=== PATIENT | male | born 1960 | race Caucasian/White ===

== ENCOUNTER → 2017-03-25 | Outpatient (CLI) | payer OTHER, MEDICARE ==
[~2017-03-25] MED LIST: ALPRazolam 1MG TABLET ONE
== END | disposition home or self-care (01) ==
LOC: RAD 07:08
PROVIDERS: ATTEND Physical Medicine & Rehabilitation
DX: M47.895 Other spondylosis, thoracolumbar region (principal); M47.896 Other spondylosis, lumbar region; M96.1 Postlaminectomy syndrome, not elsewhere classified; G89.29 Other chronic pain; Z98.1 Arthrodesis status; Z98.890 Other specified postprocedural states
CPT/HCPCS: 72148

== ENCOUNTER 2019-10-02 22:59 | Inpatient (IN) | payer OTHER, MEDICARE ==
[~2019-10-02] VITALS: Ht 185.4 cm; Wt 119.4 kg
[2019-10-02] MEDS ORDERED: MORPHINE SULFATE 4 MG/ML, 1ML IVPush PRN (23:30)
[2019-10-02] MEDS ORDERED: SODIUM CHLORIDE FLUSH 10ML SYR IVF ONE (23:30)
[2019-10-02] MEDS ORDERED: MORPHINE SULFATE 4 MG/ML, 1ML ONE (23:31)
--- NOTE | 2019-10-02 23:59 | NUR ---
pt biba from home for glf. states he slipped on bathroom rug. pt has chronic pain. sees pain mgmt. pt has 3 dime sized bruises noted to R flank. denies loc. pt has iv in place, estb by darryl. pt was tachy ~150 at home. syd to ed hr ~115. ns infusing slowly. pa at bs. pt remain in xray at this time.
--- NOTE | 2019-10-03 00:11 | NUR ---
pt back from xray. labs drawn & sent. call light inreach. will ctm.
[2019-10-03 00:23] LABS: BASOPHILS # (AUTO) 0.03 x10^3/uL (0-0.1); BASOPHILS % (AUTO) 0 % (0-1); EOSINOPHILS # (AUTO) 0.05 x10^3/uL (0-0.4); EOSINOPHILS % (AUTO) 1 % (1-7); LYMPHOCYTES # (AUTO) 1.62 x10^3/uL (1-3.4); LYMPHOCYTES % (AUTO) 18 % (22-44); MD NO; MEAN CORPUSCULAR HEMOGLOBIN 33.6 pg (27.5-34.5); MEAN CORPUSCULAR HGB CONC 34.2 g/dL (33.2-36.2); MEAN CORPUSCULAR VOLUME 98.4 fL (81-97); MEAN PLATELET VOLUME 7.1 fL (7.4-10.4); MONOCYTES # (AUTO) 0.71 x10^3/uL (0.2-0.8); MONOCYTES % (AUTO) 8 % (2-9); NEUTROPHILS # (AUTO) 6.68 x10^3/uL (1.8-6.8); NEUTROPHILS % (AUTO) 74 % (42-75); PLATELET COUNT 105 x10^3/uL (130-400); RED BLOOD COUNT 2.67 x10^6/uL (4.38-5.82); RED CELL DISTRIBUTION WIDTH 16.4 % (9.4-14.8)
[2019-10-03 00:33] LABS: ALANINE AMINOTRANSFERASE 20 U/L (12-78); ALBUMIN 1.3 g/dL (3.4-5.0); ANION GAP 9 mmol/L (5-15); CHLORIDE 120 mmol/L (98-107); CREATININE 0.57 mg/dL (0.7-1.3)
[2019-10-03 00:35] LABS: ALKALINE PHOSPHATASE 97 U/L (45-117); BILIRUBIN,TOTAL 0.2 mg/dL (0.2-1.0); TOTAL PROTEIN 4.2 g/dL (6.4-8.2)
[2019-10-03 00:38] LABS: CALCIUM < 5.0 mg/dL (8.5-10.1)
--- NOTE | 2019-10-03 00:38 | NUR ---
LAB CALLS WITH CRITICAL CA LESS THAN 5, MD AWARE
[2019-10-03] MEDS ORDERED: CALCIUM GLUCONATE 4.6 MEQ/10 ML IVPush ONE (01:00)
[2019-10-03] MEDS ORDERED: SODIUM CHLORIDE 0.9% 1,000ML IVBOLUS ONE (01:00)
[2019-10-03] MEDS: PLEASE ENTER ALLERGIES MC SCH ×2 (01:00→02:46)
[2019-10-03] MEDS ORDERED: CALCIUM GLUCONATE 4.6 MEQ in SODIUM CHLORIDE 0.9% 100 ML IV ONE (01:30)
[2019-10-03 01:53] LABS: MICROSCOPIC NOT IND
[2019-10-03 02:01] LABS: CULTURE INDICATED? NO
[2019-10-03] MEDS ORDERED: MORPHINE SULFATE 4 MG/ML, 1ML ONE (02:09)
[2019-10-03] MEDS ORDERED: MORPHINE SULFATE 4 MG/ML, 1ML IVPush ONE (02:30)
[2019-10-03] MEDS ORDERED: LISI2.5T PO (02:33)
[2019-10-03] MEDS ORDERED: CIME300T PO (02:34)
[2019-10-03] MEDS ORDERED: HYDR-2995 PO (02:34)
[2019-10-03] MEDS ORDERED: OXYC5CAP2 PO (02:35)
[2019-10-03] MEDS ORDERED: TRAZ-175 PO (02:35)
[2019-10-03 03:21] VITALS: BP 144/72
[2019-10-03] MEDS: POTASSIUM CHLORIDE 20 MEQ, MAGNESIUM SULFATE 2 GM, THIAMINE 200 MG, MVI ADULT 10 ML, FO... IV SCH (03:35)
[2019-10-03] MEDS ORDERED: ACETAMINOPHEN 325 MG TABLET PO PRN (04:00)
[2019-10-03] MEDS ORDERED: hydrALAzine 20 MG/ML, 1ML IVPush PRN (04:00)
[2019-10-03] MEDS ORDERED: PROMETHAZINE 25 MG/ML, 1ML IM PRN (04:00)
[2019-10-03] MEDS ORDERED: OMNIPAQUE 350 MG/ML, 100ML BOTTLE ONE (05:29)
[2019-10-03] MEDS ORDERED: POTASSIUM PHOSPHATE 22 MEQ in SODIUM CHLORIDE 0.9% 500 ML IV ONE (05:30)
[2019-10-03] MEDS: morphine SULFATE 10 MG/ML, 1ML IVPush PRN ×2 (06:50→11:45)
[2019-10-03 07:20] VITALS: BP 128/78
[2019-10-03 08:15] LABS: AMPHETAMINE SCREEN, URINE Negative (Negative); BARBITURATE SCREEN, URINE Negative (Negative); BENZODIAZEPINE SCREEN, URINE Negative (Negative); CANNABINOID SCREEN, URINE Positive (Negative); COCAINE SCREEN, URINE Negative (Negative); METHADONE SCREEN, URINE Negative (Negative); OPIATE SCREEN, URINE Positive (Negative)
[2019-10-03] MEDS ORDERED: MAGNESIUM SULFATE PMX 2GM/50ML 50 ML IV ONE (08:30)
[2019-10-03 10:02] LABS: ANION GAP 12 mmol/L (5-15); CALCIUM 9.2 mg/dL (8.5-10.1); CHLORIDE 106 mmol/L (98-107); CREATININE 1.23 mg/dL (0.7-1.3)
[2019-10-03 12:14] VITALS: BP 153/75
[2019-10-03] MEDS: LACTATED RINGERS 1,000 ML IV SCH (13:30)
[2019-10-03] MEDS: LORazepam 2 MG/ML, 1ML IV PRN ×2 (14:26→20:53)
[2019-10-03] MEDS ORDERED: LORazepam 2 MG/ML, 1ML IV PRN ×2 (14:30)
[2019-10-03 19:35] VITALS: BP 156/85
[2019-10-03 23:58] VITALS: BP 173/80
[2019-10-04] MEDS: morphine SULFATE 10 MG/ML, 1ML IVPush PRN (00:04)
[2019-10-04 01:06] VITALS: BP 152/81
[2019-10-04] MEDS: LACTATED RINGERS 1,000 ML IV SCH (01:57)
[2019-10-04] MEDS: LORazepam 2 MG/ML, 1ML IV PRN (03:54)
[2019-10-04 06:12] LABS: MEAN CORPUSCULAR HEMOGLOBIN 34.5 pg (27.5-34.5); MEAN CORPUSCULAR HGB CONC 34.4 g/dL (33.2-36.2); MEAN CORPUSCULAR VOLUME 100.4 fL (81-97); MEAN PLATELET VOLUME 7.1 fL (7.4-10.4); PLATELET COUNT 93 x10^3/uL (130-400); RED BLOOD COUNT 3.74 x10^6/uL (4.38-5.82); RED CELL DISTRIBUTION WIDTH 16.3 % (9.4-14.8)
[2019-10-04 06:21] LABS: CHLORIDE 108 mmol/L (98-107)
[2019-10-04 06:29] LABS: ALANINE AMINOTRANSFERASE 35 U/L (12-78); ALBUMIN 2.5 g/dL (3.4-5.0); ALKALINE PHOSPHATASE 175 U/L (45-117); ANION GAP 5 mmol/L (5-15); BILIRUBIN,TOTAL 1.9 mg/dL (0.2-1.0); CALCIUM 8.6 mg/dL (8.5-10.1); CREATININE 0.82 mg/dL (0.7-1.3); TOTAL PROTEIN 7.1 g/dL (6.4-8.2)
[2019-10-04 06:38] LABS: BASOPHILS # (AUTO) 0.03 x10^3/uL (0-0.1); BASOPHILS % (AUTO) 0 % (0-1); EOSINOPHILS # (AUTO) 0.08 x10^3/uL (0-0.4); EOSINOPHILS % (AUTO) 1 % (1-7); LYMPHOCYTES # (AUTO) 1.77 x10^3/uL (1-3.4); LYMPHOCYTES % (AUTO) 22 % (22-44); MD SCAN; MONOCYTES # (AUTO) 1.15 x10^3/uL (0.2-0.8); MONOCYTES % (AUTO) 14 % (2-9); NEUTROPHILS # (AUTO) 5.17 x10^3/uL (1.8-6.8); NEUTROPHILS % (AUTO) 63 % (42-75)
[2019-10-04 06:46] VITALS: BP 162/76
[2019-10-04] MEDS ORDERED: SODIUM PHOSPHATE 20 MMOL in SODIUM CHLORIDE 0.9% 500 ML IV ONE (08:00)
[2019-10-04] MEDS ORDERED: LORazepam 1MG TABLET PO PRN (10:00)
[2019-10-04] MEDS ORDERED: LORazepam 0.5MG TABLET PO PRN (10:00)
[2019-10-04] MEDS ORDERED: LISI-167 PO (11:14)
[2019-10-04] MEDS: LISINOPRIL 10 MG TABLET PO SCH (11:49)
[2019-10-04] MEDS: LORazepam 1MG TABLET PO PRN ×3 (11:49→19:40)
[2019-10-04 12:17] VITALS: BP 163/82
[2019-10-04] MEDS: POTASSIUM CHLORIDE 20 MEQ, MAGNESIUM SULFATE 2 GM, THIAMINE 200 MG, MVI ADULT 10 ML, FO... IV SCH (15:53)
[2019-10-04] MEDS: HYDROcodone/APAP 5/325 TABLET PO PRN ×2 (16:55→20:57)
[2019-10-04 19:31] VITALS: BP 157/76
[2019-10-05 00:52] VITALS: BP 150/78
[2019-10-05] MEDS: LACTATED RINGERS 1,000 ML IV SCH ×3 (03:00→19:57)
[2019-10-05] MEDS: HYDROcodone/APAP 5/325 TABLET PO PRN ×3 (04:08→15:53)
[2019-10-05 05:59] LABS: ALANINE AMINOTRANSFERASE 35 U/L (12-78); ALBUMIN 2.6 g/dL (3.4-5.0); ANION GAP 6 mmol/L (5-15); CALCIUM 8.6 mg/dL (8.5-10.1); CHLORIDE 107 mmol/L (98-107); CREATININE 0.77 mg/dL (0.7-1.3); MEAN CORPUSCULAR HEMOGLOBIN 33.7 pg (27.5-34.5); MEAN CORPUSCULAR HGB CONC 33.9 g/dL (33.2-36.2); MEAN CORPUSCULAR VOLUME 99.4 fL (81-97); MEAN PLATELET VOLUME 7.5 fL (7.4-10.4); PLATELET COUNT 84 x10^3/uL (130-400); RED BLOOD COUNT 3.69 x10^6/uL (4.38-5.82)
[2019-10-05 06:01] LABS: ALKALINE PHOSPHATASE 167 U/L (45-117); BILIRUBIN,TOTAL 2.6 mg/dL (0.2-1.0); TOTAL PROTEIN 7.3 g/dL (6.4-8.2)
[2019-10-05 06:21] LABS: BASOPHILS # (AUTO) 0.03 x10^3/uL (0-0.1); BASOPHILS % (AUTO) 0 % (0-1); EOSINOPHILS # (AUTO) 0.09 x10^3/uL (0-0.4); EOSINOPHILS % (AUTO) 1 % (1-7); LYMPHOCYTES # (AUTO) 2.01 x10^3/uL (1-3.4); LYMPHOCYTES % (AUTO) 28 % (22-44); MD SCAN; MONOCYTES # (AUTO) 0.74 x10^3/uL (0.2-0.8); MONOCYTES % (AUTO) 10 % (2-9); NEUTROPHILS # (AUTO) 4.44 x10^3/uL (1.8-6.8); NEUTROPHILS % (AUTO) 61 % (42-75)
[2019-10-05] MEDS: LORazepam 1MG TABLET PO PRN ×3 (06:42→23:56)
[2019-10-05 06:55] VITALS: BP 137/67
[2019-10-05] MEDS: LISINOPRIL 10 MG TABLET PO SCH (08:22)
[2019-10-05 12:25] VITALS: BP 145/78
[2019-10-05] MEDS: POTASSIUM CHLORIDE 20 MEQ, MAGNESIUM SULFATE 2 GM, THIAMINE 200 MG, MVI ADULT 10 ML, FO... IV SCH (15:53)
[2019-10-05 19:48] VITALS: BP 151/83
[2019-10-06 00:20] VITALS: BP 152/53
[2019-10-06] MEDS: HYDROcodone/APAP 5/325 TABLET PO PRN ×2 (00:56→07:27)
[2019-10-06 04:25] VITALS: BP 163/83
[2019-10-06] MEDS: LORazepam 1MG TABLET PO PRN ×2 (04:29→08:20)
[2019-10-06] MEDS: LACTATED RINGERS 1,000 ML IV SCH ×2 (06:13→13:10)
[2019-10-06 07:42] VITALS: BP 158/84
[2019-10-06] MEDS: LISINOPRIL 10 MG TABLET PO SCH (08:20)
[2019-10-06 13:17] VITALS: BP 165/93
[2019-10-06] MEDS: POTASSIUM CHLORIDE 20 MEQ, MAGNESIUM SULFATE 2 GM, THIAMINE 200 MG, MVI ADULT 10 ML, FO... IV SCH (15:00)
[2019-10-06] MEDS ORDERED: CHLO25CA9 PO (16:02)
== END 2019-10-06 17:55 | disposition home or self-care (01) | DRG 438 ==
LOC: ED 10-03 01:50 → EDIP 10-03 01:58 → ED 10-03 02:18 → 4EST 10-03 03:27
PROVIDERS: ADMIT Family Medicine; ATTEND Family Medicine
DX: K85.20 Alcohol induced acute pancreatitis without necrosis or infection (principal); E43 Unspecified severe protein-calorie malnutrition; E87.1 Hypo-osmolality and hyponatremia; F10.239 Alcohol dependence with withdrawal, unspecified; F10.288 Alcohol dependence with other alcohol-induced disorder; F11.20 Opioid dependence, uncomplicated; D53.9 Nutritional anemia, unspecified; D69.6 Thrombocytopenia, unspecified; E83.39 Other disorders of phosphorus metabolism; E83.42 Hypomagnesemia; E83.51 Hypocalcemia; E87.6 Hypokalemia; F12.10 Cannabis abuse, uncomplicated; G89.4 Chronic pain syndrome; I10 Essential (primary) hypertension; Z96.641 Presence of right artificial hip joint; Y92.009 Unspecified place in unspecified non-institutional (private) residence as the place of occurrence of the external cause; Z68.34 Body mass index [BMI] 34.0-34.9, adult
CPT/HCPCS: 36415; 71101; 72072; 72110; 96365; 96375; 99291; J7042; 71045; 74177; 80048; 80053; 80307; 81003; 82330; 83690; 83735; 84100; 85014; 85018; 85025; 93005; G0378; J0610; J3411; J3475; J3480; Q9967; J2060; J2270; J7030; J7040; J7120

== ENCOUNTER → 2020-11-24 | Outpatient (CLI) | payer OTHER, MEDICARE ==
[~2020-11-24] MED LIST changes: -ALPRazolam 1MG TABLET ONE; +CHLO25CA9 PO; +CIME300T PO; +HYDR-2995 PO; +LISI-167 PO; +LISI2.5T PO; +OXYC5CAP2 PO; +TRAZ-175 PO
== END | disposition home or self-care (01) ==
LOC: CVU 07:58
PROVIDERS: ATTEND Internal Medicine
DX: I35.8 Other nonrheumatic aortic valve disorders (principal); R16.1 Splenomegaly, not elsewhere classified; R18.8 Other ascites; R00.0 Tachycardia, unspecified; D69.6 Thrombocytopenia, unspecified; K76.0 Fatty (change of) liver, not elsewhere classified; R74.8 Abnormal levels of other serum enzymes; I11.9 Hypertensive heart disease without heart failure
CPT/HCPCS: 76705; 93306